=== PATIENT | female | born 1940 | race Caucasian/White ===

== ENCOUNTER 2022-09-27 08:49 | Emergency (ER) | payer OTHER ==
[2022-09-27] MEDS ORDERED: ONDANSETRON 4 MG/2 ML VIAL ONE (09:28)
[2022-09-27 09:38] LABS: Absolute Lymphocytes (CBC) 1.4 K/uL (0.7-4.9); Hematocrit 43.3 % (36.0-45.0); Lymphocytes % 7.4 % (15.3-44.8); MCV 85.2 fL (80-100); MPV 7.2 fL (7.6-11.3); RBC Red Blood Cell Count 5.08 M/uL (3.86-4.86)
[2022-09-27 09:55] LABS: Albumin 3.7 g/dL (3.4-5.0); Bilirubin Total 1.6 mg/dL (0.2-1.0); Potassium 4.1 mEq/L (3.5-5.1); Protein, Total 8.5 g/dL (6.4-8.2)
--- NOTE | 2022-09-27 10:22 | RAD REPORT ---
EXAM DESCRIPTION: CT - Abdomen Pelvis W Contrast - 09/27/2022 10:07 am CLINICAL HISTORY: Abdominal pain COMPARISON: 2017 TECHNIQUE: Computed axial tomography of the abdomen pelvis was obtained. 100 cc Isovue-300 was admin istered intravenously. Oral contrast was not requested which limits evaluation of bowel and appendix All CT scans are performed using dose optimization technique as appropriate and may include automated exposure control or mA/KV adjustment according to patient size. FINDINGS: Chronic pneumobilia. Liver otherwise unremarkable. Cholecystectomy. Spleen, adrenals unremarkable. Small renal cysts. A stent is present within the pancreas. Mild dilatation of the pancreatic duct. Mild peripancreatic s tranding. Mild thickening of the wall of the distal stomach. Normal appendix. No evidence diverticulitis. A small amount of free fluid within the pelvis. No adnex al mass. Benign pelvic calcifications Small umbilical hernia IMPRESSION: Mild peripancreatic stranding probably indicating mild pancreatitis Mild thickening of the wall of the distal stomach most likely reactive to the pancreatitis. Primary g astric inflammation can also have this appearance Small amount of pelvic ascites
--- NOTE | 2022-09-27 10:35 | EDPHYS ---
Physician Documentation [facility] Name: Christina Jeffries Age: 82 yrs Sex: Female : 1940 Arrival Date: 09/27/2022 Time: 08:49 Bed 14 Private MD: ED Physician Masood Nazario HPI: 09/27 10:16 This 82 yrs old Female presents to ER via Ambulatory with complaints of Abdominal Pain, ms3 Vomiting. 10:16 82-year-old female with past medical history of diverticulitis presents with her ms3 daughter for abdominal pain that began on Monday morning. Patient rates her pain an 8/10 describes the pain being located in the epigastric region. Patient states when she eats she feels the food come back up and she vomits. Patient denies alleviating factors.. Historical: - Allergies: 09:03 Aspirin; jl7 - Home Meds: 09:03 None [Active]; jl7 - PMHx: 10:12 Diverticulitis; kc6 - PSHx: 09:03 Cholecystectomy; jl7 - Immunization history:: Adult Immunizations not up to date. - Social history:: Smoking status: Patient denies any tobacco usage or history of. ROS: 10:16 Constitutional: Negative for fever, and chills. Neck: Negative for injury, pain, and ms3 swelling, Cardiovascular: Negative for chest pain, and palpitations. Respiratory: Negative for shortness of breath, cough, wheezing, and pleuritic chest pain. 10:16 MS/Extremity: Negative for injury and deformity, Skin: Negative for injury, rash, and discoloration, Neuro: Negative for headache, weakness, numbness, tingling. 10:16 Abdomen/GI: Positive for abdominal pain, nausea and vomiting. 10:16 All other systems are negative. Exam: 10:16 Constitutional: This is a well developed, well nourished patient who is awake, alert, ms3 and in no acute distress. Head/Face: Normocephalic, atraumatic. Neck: Trachea midline, no cervical lymphadenopathy. Supple, full range of motion without nuchal rigidity, or vertebral point tenderness. No Meningismus. Chest/axilla: Normal chest wall appearance and motion. Nontender with no deformity. Cardiovascular: Regular rate and rhythm with a normal S1 and S2. No gallops, murmurs, or rubs. Normal PMI, no JVD. No pulse deficits. Respiratory: Lungs have equal breath sounds bilaterally, clear to auscultation and percussion. No rales, rhonchi or wheezes noted. No increased work of breathing, no retractions or nasal flaring. 10:16 Skin: Warm, dry with normal turgor. Normal color with no rashes, no lesions, and no evidence of cellulitis. 10:16 Abdomen/GI: Inspection: abdomen appears normal, Bowel sounds: normal, Palpation: mild abdominal tenderness, in the epigastric area. Vital Signs: 09:02 BP 191 / 82; Pulse 77; Resp 17; Temp 98.1; Pulse Ox 100% ; Weight 64.41 kg; Height 5 jl7 ft. 4 in. ; Pain 10/10; 10:11 BP 182 / 79; Pulse 75; Resp 17 S; Pulse Ox 100% on R/A; kc6 11:04 BP 181 / 75; Pulse 71; Resp 17 S; Pulse Ox 100% on R/A; kc6 09:02 Body Mass Index 24.37 (64.41 kg, 162.56 cm) jl7 09:02 Pain Scale: Adult jl7 MDM: 09:09 Patient medically screened. ms3 10:16 Differential diagnosis: Nonspecific abd pain, gastritis, pancreatitis, diverticulitis, ms3 Obstruction. 10:32 ED course: No GI supervisor insulation at [facility]. Patient and family would like to stay close to [address] Requesting transfer to [facility] if possible.. 10:34 Data reviewed: vital signs, nurses notes, lab test result(s), radiologic studies, and [facility] as a result, I will discharge patient. Consideration of Admission/Observation Will transfer. I considered the following discharge prescriptions or medication management in the emergency department Medications were administered in the Emergency Department. See MAR. 10:35 Historians other than the Patient: Daughter/Son: Patient's daughter. Counseling: I had ms3 a detailed discussion with the patient and/or guardian regarding: the historical points, exam findings, and any diagnostic results supporting the discharge/admit diagnosis, lab results, radiology results, the need to transfer to another facility, [facility] does not immediately have the required specialist. Response to treatment: the patient's symptoms have mildly improved after treatment, and as a result, I will transfer. 11:00 ED course: Discussed case with Dr Phillips and he would like Triglyceride level prior to ms3 accepting. 09/27 09:10 Order name: CBC with Diff; Complete Time: 10:03 ms3 09/27 09:10 Order name: CMP; Complete Time: 10:03 ms3 09/27 09:10 Order name: Lipase; Complete Time: 10:03 ms3 09/27 10:58 Order name: Lipid Profile; Complete Time: 11:35 ms3 09/27 09:10 Order name: CT Abd/Pelvis - IV Contrast Only; Complete Time: 10:23 ms3 09/27 09:10 Order name: IV Saline Lock; Complete Time: 09:33 ms3 09/27 09:10 Order name: Labs collected and sent; Complete Time: :33 ms3 Administered Medications: 09:33 Drug: Ondansetron IVP 4 mg Route: IVP; Site: right antecubital; kc6 10:11 Follow up: Response: No adverse reaction; Nausea is decreased; Vomiting decreased kc6 10:58 Drug: NS 0.9% IV 1000 ml Route: IV; Rate: 125 ml/hr; Site: right antecubital; kc6 12:10 Follow up: Response: No adverse reaction; IV Status: Infusion continued upon transfer kc6 Disposition Summary: 09/27/22 10:34 Transfer Ordered Transfer Location: Other Acute Care Facility ms3 Reason: Higher level of care ms3 Condition: Stable ms3 Problem: new ms3 Symptoms: are unchanged ms3 Accepting Physician: Dr Phillips(09/27/22 12:45) kc6 Diagnosis - Acute pancreatitis without necrosis or infection, unspecified ms3 - Upper abdominal pain, unspecified ms3 - Elevated blood-pressure reading, without diagnosis of hypertension ms3 Forms: - Medication Reconciliation Form ms3 - SBAR form ms3 Signatures: Dispatcher [employer] Gaurav Buchanan RN RN jl7 Masood Nazario DO DO ms3 Mariana Alvarado RN RN kc6 Corrections: (The following items were deleted from the chart) 10:12 09:03 PMHx: None; manuel kc6 10:59 10:34 Dr barone ms3 12:45 10:59 Dr Ravadi ms3 kc6
--- NOTE | 2022-09-27 10:35 | ER ---
Nurse's Notes [facility] Name: Christina Jeffries Age: 82 yrs Sex: Female : 1940 Arrival Date: 09/27/2022 Time: 08:49 Bed 14 Private MD: Diagnosis: Acute pancreatitis without necrosis or infection, unspecified;Upper abdominal pain, unspecified;Elevated blood-pressure reading, without diagnosis of hypertension Presentation: 09/27 09:02 Chief complaint: Patient states: Diffuse abdominal pain x 3 days, N/V, denies diarrhea, jl7 last BM Monday and normal. Coronavirus screen: At this time, the client does not indicate any symptoms associated with coronavirus-19. Ebola Screen: No symptoms or risks identified at this time. Initial Sepsis Screen: Does the patient meet any 2 criteria? No. Patient's initial sepsis screen is negative. Does the patient have a suspected source of infection? No. Patient's initial sepsis screen is negative. Risk Assessment: Do you want to hurt yourself or someone else? Patient reports no desire to harm self or others. Onset of symptoms was September 25, 2022. 09:02 Method Of Arrival: Ambulatory jl7 09:02 Acuity: MANUEL 3 jl7 Triage Assessment: 09:03 General: Appears in no apparent distress. uncomfortable, Behavior is calm, cooperative. jl7 Pain: Complains of pain in abdomen diffusely Pain currently is 10 out of 10 on a pain scale. GI: Reports nausea, vomiting. Historical: - Allergies: 09:03 Aspirin; jl7 - Home Meds: 09:03 None [Active]; jl7 - PMHx: 10:12 Diverticulitis; kc6 - PSHx: 09:03 Cholecystectomy; jl7 - Immunization history:: Adult Immunizations not up to date. - Social history:: Smoking status: Patient denies any tobacco usage or history of. Screenin:[facility] ED Fall Risk Assessment (Adult) History of falling in the last 3 months, kc6 including since admission No falls in past 3 months (0 pts) Confusion or Disorientation No (0 pts) Intoxicated or Sedated No (0 pts) Impaired Gait No (0 pts) Mobility Assist Device Used No (0 pt) Altered Elimination No (0 pt) Score/Fall Risk Level 0 - 2 = Low Risk Oriented to surroundings, Maintained a safe environment, Educated pt \T\ family on fall prevention, incl call for assistance when getting out of bed, Assessed \T\ reinforced patient's understanding of fall precautions, Hourly rounding (assess needs \T\ fall precautionary measures) done. Abuse screen: Denies threats or abuse. Denies injuries from another. Nutritional screening: No deficits noted. Tuberculosis screening: No symptoms or risk factors identified. Assessment: 09:33 General: Appears in no apparent distress. comfortable, Behavior is calm, cooperative, kc6 appropriate for age. Pain: Complains of pain in abdomen diffusely Pain does not radiate. Pain currently is 5 out of 10 on a pain scale. Neuro: Shaw Agitation-Sedation Scale (RASS): 0 - Alert and Calm Level of Consciousness is awake, alert, obeys commands, Oriented to person, place, time, situation, Appropriate for age. Cardiovascular: Capillary refill < 3 seconds. Respiratory: Airway is patent Trachea midline Respiratory effort is even, unlabored, Respiratory pattern is regular, symmetrical. GI: Abdomen is flat, non-distended, Bowel sounds present X 4 quads. Abd is soft X 4 quads Abdomen is tender to palpation in epigastric area Reports diarrhea, intolerance of fluids, intolerance of food, nausea, vomiting. Derm: No signs and/or symptoms reported regarding the dermatologic system. Skin is intact, Skin is pink, warm \T\ dry. 10:10 Reassessment: Patient appears in no apparent distress at this time. No changes from kc6 previously documented assessment. Patient and/or family updated on plan of care and expected duration. Pain level reassessed. Patient is alert, oriented x 3, equal unlabored respirations, skin warm/dry/pink. 11:00 Reassessment: Patient appears in no apparent distress at this time. No changes from kc6 previously documented assessment. Patient and/or family updated on plan of care and expected duration. Pain level reassessed. Patient is alert, oriented x 3, equal unlabored respirations, skin warm/dry/pink. 12:34 Reassessment: PT MATILDE WITH EMS. bp Vital Signs: 09:02 BP 191 / 82; Pulse 77; Resp 17; Temp 98.1; Pulse Ox 100% ; Weight 64.41 kg; Height 5 jl7 ft. 4 in. ; Pain 10/10; 10:11 BP 182 / 79; Pulse 75; Resp 17 S; Pulse Ox 100% on R/A; kc6 11:04 BP 181 / 75; Pulse 71; Resp 17 S; Pulse Ox 100% on R/A; kc6 09:02 Body Mass Index 24.37 (64.41 kg, 162.56 cm) jl7 09:02 Pain Scale: Adult [facility] ED Course: 08:51 Patient arrived in ED. im 08:51 Yan Short PA is PHCP. [facility] 08:51 Masood Nazario DO is Attending Physician. [facility] 08:56 Mariana Alvarado, JACOB is Primary Nurse. kc6 09:00 Patient has correct armband on for positive identification. Bed in low position. Call kc6 light in reach. Side rails up X 1. Adult w/ patient. 09:03 Triage completed. jl7 09:03 Arm band placed on right wrist. jl7 09:33 Inserted saline lock: 20 gauge in right antecubital area, using aseptic technique. kc6 Blood collected. 10:09 CT Abd/Pelvis - IV Contrast Only In Process Unspecified. EDMS 12:34 No provider procedures requiring assistance completed. Patient transferred, IV remains bp in place. Administered Medications: 09:33 Drug: Ondansetron IVP 4 mg Route: IVP; Site: right antecubital; kc6 10:11 Follow up: Response: No adverse reaction; Nausea is decreased; Vomiting decreased kc6 10:58 Drug: NS 0.9% IV 1000 ml Route: IV; Rate: 125 ml/hr; Site: right antecubital; kc6 12:10 Follow up: Response: No adverse reaction; IV Status: Infusion continued upon transfer kc6 Medication: 12:35 VIS not applicable for this client. bp Outcome: 10:34 ER care complete, transfer ordered by . ms3 12:34 Transferred by ground EMS to [facility]. bp 12:34 Condition: stable 12:34 Instructed on the need for transfer. 12:45 Patient left the ED. kc6 Signatures: Dispatcher [employer] EDMS Yan Short PA PA m Gaurav Anaya RN RN jl7 Dutch Cox RN RN bp Masood Nazario DO DO ms3 Mariana Alvarado, JACOB RN kc6 Marlene Liao im Corrections: (The following items were deleted from the chart) 10:12 09:03 PMHx: None; jl7 kc6
[2022-09-27] MEDS ORDERED: NA CHLORIDE 0.9% 1,000 ML ONE (11:03)
[2022-09-27 13:09] VITALS: TEMP 98.1; O2SAT 100
[2022-09-27 13:47] VITALS: BP 181/75
== END 2022-09-27 12:45 ==
LOC: ER 08:49
DX: K85.90 Acute pancreatitis without necrosis or infection, unspecified (principal); R03.0 Elevated blood-pressure reading, without diagnosis of hypertension; Z88.6 Allergy status to analgesic agent
CPT/HCPCS: 96361; 85025; 36415; 80061; 83690; 80053; 74177; 96374; 99285; Q9967; J2405; J7030